=== PATIENT | female | born 1990 | race Caucasian/White ===

== ENCOUNTER 2024-02-03 06:37 | Inpatient (IN) ==
[2024-02-03] MEDS ORDERED: OXYTOCIN 20 UNIT/1,000 ML-NS 20 UNIT/1,000 ML PLAST..BAG IV PRN (07:12)
[2024-02-03] MEDS ORDERED: NUBAIN INJ 20 MG AMP IVP PRN (07:12)
[2024-02-03] MEDS ORDERED: REGLAN INJ 10 MG VIAL IVP PRN (07:12)
[2024-02-03] MEDS ORDERED: ZOFRAN INJ 4 MG VIAL IVP PRN (07:12)
[2024-02-03] MEDS: LR 1,000 ML IV 1,000 ML IV SCH (07:40)
[2024-02-03 07:55] LABS: BASOPHILS # (AUTO) 0.1 X10^3/uL (0.0-0.1); BASOPHILS % (AUTO) 0.5 % (0.2-1.0); EOSINOPHILS # (AUTO) 0.1 x10^3/uL (0.0-0.2); EOSINOPHILS % (AUTO) 0.4 % (0.9-2.9); HEMATOCRIT 29.5 % (36.0-47.0); LYMPHOCYTES # (AUTO) 2.6 X10^3/uL (1.3-2.9); LYMPHOCYTES % (AUTO) 21.1 % (21.0-51.0); MEAN CORPUSCULAR HEMOGLOBIN 29.4 pg (27.0-34.0); MEAN CORPUSCULAR HGB CONC 33.8 g/dL (33.0-35.0); MEAN PLATELET VOLUME 8.3 fL (7.4-11.0); MONOCYTES # (AUTO) 0.9 x10^3/uL (0.3-0.8); MONOCYTES % (AUTO) 7.6 % (0.0-13.0); NEUTROPHILS # (AUTO) 8.7 x10^3/uL (2.2-4.8); NEUTROPHILS % (AUTO) 70.4 % (42.0-75.0); PLATELET COUNT 347 X10^3/uL (150.0-450.0); RED BLOOD COUNT 3.39 X10^6/uL (3.5-5.4); RED CELL DISTRIBUTION WIDTH 14.4 % (11.6-16.5); WHITE BLOOD COUNT 12.4 X10^3/uL (3.6-10.0)
[2024-02-03] MEDS: OXYTOCIN 20 UNIT/1,000 ML-NS 20 UNIT/1,000 ML PLAST..BAG IV PRN (08:00)
[2024-02-03 08:03] LABS: BLOOD UREA NITROGEN 9 mg/dL (7-18); CALCIUM 8.7 mg/dL (8.5-10.1); CARBON DIOXIDE 26.5 mmol/L (21-32); CHLORIDE 101 mmol/L (98-107); CREATININE 0.51 mg/dL (0.55-1.02); GLUCOSE 76 mg/dL (65-99); POTASSIUM 3.9 mmol/L (3.5-5.1); SODIUM 133 mmol/L (136-145); eGFR NON BLACK RACES > 60 (>60)
[2024-02-03 08:17] LABS: BILIRUBIN,URINE NEGATIVE (NEGATIVE); BLOOD/HEMOGLOBIN,URINE NEGATIVE (NEGATIVE); GLUCOSE, URINE NEGATIVE (NEGATIVE); KETONES,URINE NEGATIVE (NEGATIVE); LEUKOCYTE ESTERASE ,URINE NEGATIVE (NEGATIVE); NITRITES,URINE NEGATIVE (NEGATIVE); PROTEIN,URINE 1+ (NEGATIVE); UROBILINOGEN,URINE NORMAL (NORMAL)
[2024-02-03 08:29] LABS: APPEARANCE,URINE CLEAR (CLEAR); COLOR,URINE YELLOW (YELLOW)
[2024-02-03 08:30] LABS: BACTERIA,URINE TRACE /HPF (NEGATIVE); RBC,URINE 0-2 /HPF (0-3); SQUAMOUS EPITHELIAL CELL,UR MODERATE /HPF (NEGATIVE)
[2024-02-03] MEDS: LR 1,000 ML IV 1,000 ML IV ONE ×3 (13:00→19:57)
[2024-02-03] MEDS: FENTANYL VIAL INJ 100 mcg ONE (13:59)
[2024-02-03] MEDS: NAROPIN EPIDURAL 0.2% 100 ML ONE (14:05)
[2024-02-03] MEDS: BRETHINE INJ 1 MG VIAL SC ONE (15:05)
[2024-02-03] MEDS: BETADINE SOLN ONE (16:58)
[2024-02-03] MEDS: NOZIN NASAL SANITIZER TP ONE (16:58)
[2024-02-03] MEDS: PITOCIN ONE (19:38)
[2024-02-03] MEDS: ANCEF VIAL 1 GRAM ONE (19:56)
[2024-02-03] MEDS: PITOCIN IVP ONE (19:56)
[2024-02-03] MEDS: NS 100 ML IV 100 ML ONE (19:56)
[2024-02-03] MEDS ORDERED: MOTRIN TAB 800 MG PO PRN (19:57)
[2024-02-03] MEDS ORDERED: AMBIEN PO PRN (20:38)
[2024-02-03] MEDS ORDERED: MILK OF MAGNESIA PO PRN (20:38)
[2024-02-03] MEDS: OXYTOCIN 20 UNIT/1,000 ML-NS 20 UNIT/1,000 ML PLAST..BAG IV SCH (20:48)
[2024-02-03] MEDS: VALTREX PO SCH (22:03)
[2024-02-04] MEDS: MOTRIN TAB 800 MG PO PRN (01:52)
[2024-02-04 05:19] LABS: HEMOGLOBIN 9.4 g/dL (12.0-16.0)
[2024-02-04] MEDS: PRENATAL PLUS PO SCH (08:52)
[2024-02-04] MEDS: NS 100 ML IV 100 ML with VENOFER 400 MG IV ONE (10:01)
[2024-02-04] MEDS: FLONASE NASAL SPRAY ENOSTRIL SCH (17:09)
[2024-02-04] MEDS: ASTELIN NASAL SPRAY ENOSTRIL SCH (17:09)
[2024-02-04] MEDS: ADACEL or BOOSTRIX TDaP VACCINE IM ONE ×2 (17:11→17:17)
[2024-02-04] MEDS: ASTELIN NASAL SPRAY ENOSTRIL ONE (17:17)
[2024-02-05] MEDS: DERMOPLAST PAIN RELIEF SPRAY TOP PRN (08:06)
[2024-02-05 09:03] VITALS: BP 114/67; PULSE 71; TEMP 97.4; O2SAT 98
[2024-02-05] MEDS: WELLBUTRIN XL 300 MG (DAILY) PO SCH (09:59)
[2024-02-05] MEDS: NS 100 ML IV 100 ML with VENOFER 400 MG IV ONE (10:00)
[2024-02-05 12:06] VITALS: RESP 20
== END 2024-02-05 12:58 | disposition home or self-care (01) | DRG 807 ==
LOC: LD 06:37 → MED/SURG 20:54
PROVIDERS: ADMIT Obstetrics & Gynecology Obstetrics; ATTEND Obstetrics & Gynecology Obstetrics